=== PATIENT | female | born 1985 | race African-American/Black ===

== ENCOUNTER 2019-04-21 09:05 | Emergency (ER) | payer MEDICAID, OTHER ==
[~2019-04-21] VITALS: Ht 172.7 cm; Wt 69.4 kg
[2019-04-21 09:23] VITALS: BP 106/66
[2019-04-21] MEDS ORDERED: BACITRACIN 15GM TUBE TOP ONE (10:00)
[2019-04-21] MEDS ORDERED: TETANUS, DIPHTHERIA, PERTUSSIS VAC/PF 0.5ML (>7YR OLD) IM ONE (10:00)
[2019-04-21] MEDS ORDERED: BACITRACIN ZINC OINT UDPKT TOP ONE (10:00)
== END 2019-04-21 10:15 | disposition home or self-care (01) ==
LOC: ER 09:05
DX: S51.852A Open bite of left forearm, initial encounter (principal); Y04.1XXA Assault by human bite, initial encounter; Y93.89 Activity, other specified; Y92.89 Other specified places as the place of occurrence of the external cause; Z23 Encounter for immunization; R03.0 Elevated blood-pressure reading, without diagnosis of hypertension
CPT/HCPCS: 90471; 90715; 99283

== ENCOUNTER 2019-04-22 18:22 | Emergency (ER) | payer MEDICAID ==
[~2019-04-22] VITALS: Ht 172.7 cm; Wt 64.0 kg
[2019-04-22] MEDS: IBUPROFEN 800MG TABLET PO ONE (19:11)
[2019-04-22 20:00] VITALS: BP 123/61
== END 2019-04-22 20:00 | disposition home or self-care (01) ==
LOC: ER 18:22
DX: S20.212A Contusion of left front wall of thorax, initial encounter (principal); S10.83XA Contusion of other specified part of neck, initial encounter; S20.222A Contusion of left back wall of thorax, initial encounter; S20.221A Contusion of right back wall of thorax, initial encounter; V49.49XA Driver injured in collision with other motor vehicles in traffic accident, initial encounter; Y93.89 Activity, other specified; Y92.89 Other specified places as the place of occurrence of the external cause; Y99.8 Other external cause status
CPT/HCPCS: 71045; 99283